=== PATIENT | male | born 1970 | race Caucasian/White ===

== ENCOUNTER 2017-12-25 19:50 | Emergency (ER) | payer SELFPAY ==
--- NOTE | 2017-12-25 20:47 | C.PDOC ---
History Of Present Illness 47yo male, brought in by EMS for evaluation due to alcohol intoxication. Patient reportedly fell and hit forehead; no loss of consciousness. Patient denies any neck pain. Time Seen by Provider: 12/25/17 20:46 Chief Complaint (Nursing): Substance Abuse History Per: EMS History/Exam Limitations: intoxication Modifying Factor(s): Alcohol Past Medical History Reviewed: Historical Data, Nursing Documentation, Vital Signs Vital Signs: Last Vital Signs Temp 97.7 F 12/25/17 19:51 Pulse 82 12/25/17 19:51 Resp 14 12/25/17 19:51 BP 142/91 H 12/25/17 19:51 Pulse Ox 98 12/25/17 19:51 - [facility] Procedures ING HERNIA REP-GRAFT NOS (12/14/13) Family History: States: No Known Family Hx - Social History Hx Alcohol Use: Yes Hx Substance Use: No - Immunization History Hx Tetanus Toxoid Vaccination: No Hx Influenza Vaccination: No Hx Pneumococcal Vaccination: No Review Of Systems Review Of Systems: ROS cannot be obtained secondary to pt's inabilty to answer questions. (intoxication) Musculoskeletal: Negative for: Neck Pain Neurological: Positive for: Other (head injury; facial injury) Physical Exam - Physical Exam Appears: No Acute Distress Skin: Warm, Dry Head: Normacephalic, Abrasion (contusion, abrasion noted to nose and forehead) Eye(s): bilateral: Normal Inspection, PERRL, EOMI Oral Mucosa: Moist, Other (alcohol on breath) Neck: Normal ROM, Supple Chest: Symmetrical Cardiovascular: Rhythm Regular Respiratory: Normal Breath Sounds Gastrointestinal/Abdominal: Normal Exam, Soft Back: Normal Inspection Extremity: Normal ROM ED Course And Treatment O2 Sat by Pulse Oximetry: 98 (RA) Pulse Ox Interpretation: Normal - CT Scan/US head CT Other Rad Studies (CT/US): Radiology Report Reviewed (neg) Medical Decision Making Medical Decision Making: Plan: -- Glucose POC -- CT Head w/o contrast alcohol abuse, facial contusion no fx/brain injury Disposition Doctor Will See Patient In The: Office Counseled Patient/Family Regarding: Studies Performed, Diagnosis - Disposition Disposition: HOME/ ROUTINE Disposition Time: 22:19 Condition: GOOD Forms: [employer] (Czech) - Clinical Impression Clinical Impression: Alcohol abuse, Facial contusion - Scribe Statement The provider has reviewed the documentation as recorded by the Scribe Jane Edwin Provider Attestation: All medical record entries made by the Ayaz were at my direction and personally dictated by me. I have reviewed the chart and agree that the record accurately reflects my personal performance of the history, physical exam, medical decision making, and the department course for this patient. I have also personally directed, reviewed, and agree with the discharge instructions and disposition.
[2017-12-25 22:31] VITALS: BP 119/76; PULSE 79; RESP 18; TEMP 97.9; O2SAT 96
--- NOTE | 2017-12-26 08:22 | CT ---
Date of service: 12/25/2017 PROCEDURE: CT HEAD WITHOUT CONTRAST. HISTORY: etoh, frontal contusion COMPARISON: None available. TECHNIQUE: Axial computed tomography images were obtained through the head/brain without intravenous contrast. Radiation dose: Total exam DLP = 906.82 mGy-cm. This CT exam was performed using one or more of the following dose reduction techniques: Automated exposure control, adjustment of the mA and/or kV according to patient size, and/or use of iterative reconstruction technique. FINDINGS: HEMORRHAGE: No intracranial hemorrhage. BRAIN: Pugh-white matter differentiation is preserved. There is no mass, mass effect or abnormal extra-axial fluid collection. There is no territorial infarction. The midline sagittal structures are normal. VENTRICLES: The ventricles are normal in size, shape and configuration. CALVARIUM: There is no calvarial fracture. There is a small frontal scalp hematoma. PARANASAL SINUSES: Predominantly clear. MASTOID AIR CELLS: Predominantly clear. OTHER FINDINGS: None. IMPRESSION: No acute intracranial abnormality. A preliminary report was provided by [facility].
== END 2017-12-25 22:25 | disposition home or self-care (01) ==
LOC: C.ER 19:50
DX: F10.10 Alcohol abuse, uncomplicated (principal); S00.83XA Contusion of other part of head, initial encounter; W19.XXXA Unspecified fall, initial encounter